=== PATIENT | female | born 1995 | race Caucasian/White ===

== ENCOUNTER 2017-08-02 13:55 | Emergency (ER) | payer MEDICAID ==
[2017-08-02 13:59] VITALS: BP 98/70
--- NOTE | 2017-08-02 14:09 | EDPHY ---
H & P Time Seen by Provider: 08/02/17 14:09 Smoking Status: Never smoked Constitutional: Initial Vital Signs Temperature (C) 36.7 C 08/02/17 13:57 Heart Rate 69 08/02/17 13:57 Respiratory Rate 16 08/02/17 13:57 Blood Pressure 98/70 L 08/02/17 13:57 O2 Sat (%) 96 08/02/17 13:57 O2 Delivery Mode Room Air Allergies/Adverse Reactions: No Known Allergies Allergy (Unverified 09/07/14 20:09) Home Medications: Medication Instructions Recorded Cephalexin [Keflex (RX)] 500 mg PO TID #30 cap 08/02/17 MDM/Departure - MDM ED Course/Re-evaluation: CHIEF COMPLAINT: Burning and frequent urination for 2 days HISTORY OF PRESENT ILLNESS: 21-year-old healthy female. She had an IUD placed about 2 weeks ago. She was asymptomatic until yesterday when she developed some burning, urinary frequency, and urgency. She also endorses slight amount of blood in her urine. She denies any specific abdominal pain outside of the urinary pain. She denies flank pain. She denies fevers chills nausea vomiting. REVIEW OF SYSTEMS: A 10 point review of systems was performed and is negative with the exception of the elements mentioned in the history of present illness. PHYSICAL EXAM: HR, BP, O2 Sat, RR. Temp noted General Appearance: Alert, well hydrated, appropriate, and non-toxic appearing. Head: Atraumatic without scalp tenderness or obvious injury Eyes: Pupils equal, round, reactive to light and accommodation, EOMI, no trauma , no injection. Ears: Clear bilaterally, no perforation, normal landmarks Nose: Atraumatic, no rhinorrhea, clear. Throat: There is no erythema or exudates, no lesions, normal tonsils, mucus membranes moist. Neck: Supple, 2+ carotid upstroke, nontender, no lymphadenopathy. Respiratory: No retractions, no distress, no wheezes, and no accessory muscle use. Lungs are clear to auscultation bilaterally. Cardiovascular: Regular rate and rhythm, no murmurs, rubs, or gallops. Bilateral carotid, radial, dorsalis pedis, and posterior tibial pulses intact. Good capillary refill all extremities. Gastrointestinal: Abdomen is soft, nontender, non-distended, no masses, no rebound, no guarding, no peritoneal signs. Musculoskeletal: Normal active ROM of all extremities, atraumatic. Neurological: Alert, appropriate, and interactive. The patient has normal DTRs and non-focal cranial nerves, motor, sensory, and cerebellar exam. Skin: No rashes, good turgor, no nodules on palpation. Past medical history: Denies Past surgical history: IUD placement on 07/21/2017 Family history: Noncontributory Social history: , employed, does not abuse tobacco drugs or alcohol DIFFERENTIAL DIAGNOSIS: The differential diagnosis for the patient's abdominal pain included but was not limited to ovarian cyst, pelvic inflammatory disease, ovarian torsion, urinary tract infection, ectopic , cholecystitis, and appendicitis. MEDICAL DECISION MAKING: This patient has fairly classic symptoms for a lower urinary tract infection. I am awaiting urinalysis and urine micro. This patient has positive urinalysis for leukocyte esterase red cells and white cells. I have started her on Keflex 500 mg three times daily for 10 days she will follow up with the primary care physician. She can also by Pyridium over- the-counter. - Depart Clinical Impression: Urinary tract infection Qualifiers: Urinary tract infection type: acute cystitis Hematuria presence: with hematuria Qualified Code(s): N30.01 - Acute cystitis with hematuria Condition: Good Instructions: Urinary Tract Infection in Women (ED) Additional Instructions: Follow up with regular doctor Prescriptions: Cephalexin [Keflex (RX)] 500 mg PO TID #30 cap Referrals: Precious Batista MD [Primary Care Provider] - As per Instructions
== END 2017-08-02 14:47 | disposition home or self-care (01) ==
DX: N30.01 Acute cystitis with hematuria (principal); B96.89 Other specified bacterial agents as the cause of diseases classified elsewhere

== ENCOUNTER 2018-01-22 11:09 | Emergency (ER) | payer MEDICAID ==
[2018-01-22 11:15] VITALS: BP 107/66
--- NOTE | 2018-01-22 11:37 | EDPHY ---
H & P Time Seen by Provider: 01/22/18 11:19 HPI/ROS: CHIEF COMPLAINT: Abdominal pain HISTORY OF PRESENT ILLNESS: Patient is had symptoms every couple of weeks for the last 3 months. She says about 6 or 7 episodes total. Today at 6:00 a.m. She developed left upper quadrant pain which she describes as a squeezing her cramping and lasted 2 hr and now is gone. She had her menstrual period yesterday and her LMP was December 23 before that. No urinary symptoms, no vomiting or diarrhea. She says the symptoms typically happen in the morning, and are a little bit better after she eats or drinks. Worse with spicy foods. REVIEW OF SYSTEMS: Eye: no change in vision ENT: no sore throat Cardiac: no chest pain or syncope Pulmonary: no cough or SOB Abdomen: HPI no diarrhea Musculoskeletal: no back pain or flank pain Skin: no rash Neuro: no headache Constitutional: no fever : no urinary symptoms, no dysuria or hematuria or urinary frequency or urgency. A comprehensive 10 point review of systems is otherwise negative aside from elements mentioned in the history of present illness. PAST MEDICAL HISTORY: Includes UTI, history of anemia Social history: No alcohol General Appearance: Alert and conversant, cooperative. Eyes: No scleral icterus. ENT, Mouth: Normal mucous membranes. Respiratory: Normal respiratory effort, breath sounds equal, lungs are clear to auscultation. Cardiovascular: Regular rate and rhythm. Gastrointestinal: Abdomen is soft and non tender. Specifically no splenomegaly , no rebound or guarding, no focal tenderness. Neurological: Alert, face symmetric, normal motor and sensory in extremities. Skin: Warm and dry, no rashes. Musculoskeletal: No peripheral edema. Psychiatric: Not agitated. Emergency Department course/MDM: Patient presents currently asymptomatic. She has history of gastritis. She does drink caffeine every day. Currently she is not symptomatic and I do not think this is likely to be ectopic, appendicitis, splenic rupture, perforated ulcer, GI bleed, renal colic, or other acute emergent medical condition. DC if UA and urine are negative. Referral back to primary care physician. Okay to try [id number] Maalox or Mylanta or antacid medications. Currently on menstrual period, UA has some blood which would be consistent with this. I think renal colic is unlikely. test negative. Smoking Status: Never smoked Constitutional: Initial Vital Signs Temperature (C) 36.8 C 01/22/18 11:12 Heart Rate 67 01/22/18 11:12 Respiratory Rate 16 01/22/18 11:12 Blood Pressure 107/66 01/22/18 11:12 O2 Sat (%) 98 01/22/18 11:12 O2 Delivery Mode Room Air Allergies/Adverse Reactions: No Known Allergies Allergy (Unverified 09/07/14 20:09) Home Medications: Medication Instructions Recorded Cephalexin [Keflex (RX)] 500 mg PO TID #30 cap 08/02/17 Medical Decision Making - Data Points Laboratory Results: 01/22/18 01/22/18 11:20 11:20 Urine Color PALE YELLOW Urine Appearance CLEAR Urine pH 5.0 (5.0-7.5) Ur Specific [place] 1.006 (1.002-1.030) Urine Protein NEGATIVE (NEGATIVE) Urine Ketones NEGATIVE (NEGATIVE) Urine Blood 3+ H (NEGATIVE) Urine Nitrate NEGATIVE (NEGATIVE) Urine Bilirubin NEGATIVE (NEGATIVE) Urine Urobilinogen NEGATIVE EU EU (0.2-1.0) Ur Leukocyte Esterase NEGATIVE (NEGATIVE) Urine RBC 5-10 /hpf H /hpf (0-3) Urine WBC 1-3 /hpf /hpf (0-3) Ur Epithelial Cells TRACE /lpf /lpf (NONE-1+) Urine Bacteria TRACE /hpf H /hpf (NONE SEEN) Urine Mucus TRACE /lpf /lpf (NONE-1+) Urine Glucose NEGATIVE (NEGATIVE) Urine Test NEGATIVE Departure - Departure Disposition: Home, Routine, Self-Care Clinical Impression: Abdominal pain Qualifiers: Abdominal location: left upper quadrant Qualified Code(s): R10.12 - Left upper quadrant pain Condition: Good Instructions: Acute Abdominal Pain (ED) Additional Instructions: You can try Maalox or Mylanta orally if you have symptoms, or [id number] Pepcid as directed on the box for 1 week, follow-up with your primary care physician next week. Referrals: Precious Batista MD [Doctor of Osteopathy] - As per Instructions
== END 2018-01-22 12:01 | disposition home or self-care (01) ==
DX: R10.12 Left upper quadrant pain (principal)